=== PATIENT | female | born 1980 | race Caucasian/White ===

== ENCOUNTER → 2023-07-14 | Outpatient (CLI) | payer OTHER, SELFPAY ==
--- NOTE | 2023-07-14 12:56 | NEURO ---
NCS and/or EMG Patient Report Ordering Doctor: Jean Paul Gannon DATE OF SERVICE: 07/14/23 Aixa presents numbness and tingling in the first 4 digits of the right hand. Symptoms been present for approximately the last 3 months. Electrodiagnostic findings: Right median motor nerve demonstrates normal distal latency, normal amplitude and reduced conduction velocity at the wrist. Right ulnar motor nerve demonstrates normal distal latency, amplitude and conduction velocity across the elbow. Prolonged right median sensory latency at the wrist. Prolonged right median palmar latency. Normal ulnar and radial sensory responses. Needle EMG testing was performed in the right upper limb. All muscles tested in the right upper limb, as well as the right cervical paraspinals, showed no evidence of denervation with normal motor unit action potentials. Electrodiagnostic impression: This is an abnormal study in the right upper limb. 1. Electrodiagnostic findings suggestive of right-sided median mononeuropathy. This is consistent with a moderate right carpal tunnel syndrome. Multi Select Codes Neurology Neurology Interp Codes: 44958-36 Musc test done w/n test comp (interp) and 64827-88 Nrv cndj test 7-8 studies (interp)
== END | disposition home or self-care (01) ==
PROVIDERS: Referring Provider Physician Assistant; Visit Provider Physician Assistant
DX: M79.641 Pain in right hand (principal); R20.2 Paresthesia of skin
CPT/HCPCS: 95886; 95910